=== PATIENT | male | born 1950 | race Caucasian/White ===

== ENCOUNTER 2022-12-06 15:36 | Emergency (ER) | payer MEDICARE, OTHER ==
[~2022-12-06] VITALS: Ht 177.8 cm; Wt 82.1 kg
[2022-12-06 15:57] VITALS: BP_DIAS 95
[2022-12-06 18:22] VITALS: BP_SYST 99
== END 2022-12-06 18:29 | disposition home or self-care (01) ==
LOC: ER 15:36
DX: S00.81XA Abrasion of other part of head, initial encounter (principal); W23.0XXA Caught, crushed, jammed, or pinched between moving objects, initial encounter; Y93.89 Activity, other specified; Y92.89 Other specified places as the place of occurrence of the external cause; Y99.8 Other external cause status
CPT/HCPCS: 70450